=== PATIENT | male | born 1990 | race Caucasian/White ===

== ENCOUNTER → 2018-06-13 | Outpatient (CLI) | payer OTHER | LOC: LAB 16:06 | PROVIDERS: Family Medicine | DX: F41.9 Anxiety disorder, unspecified (principal); M54.6 Pain in thoracic spine ==

== ENCOUNTER → 2021-05-22 | Outpatient (CLI) | payer OTHER ==
[2021-05-22 12:10] LABS: HEMATOCRIT 44.3 % (42.0-52.0); HEMOGLOBIN 14.8 g/dL (13.5-18.0); MEAN PLATELET VOLUME 8.5 fl (7.4-10.4); RED BLOOD COUNT 4.76 M/mm3 (4.20-5.60); RED CELL DISTRIBUTION WIDTH 12.7 % (11.5-14.5); WHITE BLOOD COUNT 7.9 K/mm3 (4.8-10.8)
[2021-05-22 12:17] LABS: ALBUMIN 4.4 g/dL (3.5-5.0)
[2021-05-22 12:18] LABS: POTASSIUM 3.9 mmol/L (3.5-5.1)
[2021-05-22 12:19] LABS: CALCIUM 9.5 mg/dL (8.3-10.5)
[2021-05-22 12:20] LABS: TOTAL PROTEIN 7.4 g/dL (6.4-8.3)
[2021-05-22 12:22] LABS: TOTAL BILIRUBIN 0.6 mg/dL (0.2-1.2)
== END ==
LOC: LAB 11:44
PROVIDERS: Family Medicine
DX: F41.8 Other specified anxiety disorders (principal)